=== PATIENT | female | born 1970 | race Caucasian/White ===

== ENCOUNTER 2016-09-28 12:52 | Emergency (ER) | payer MEDICAID, OTHER ==
[~2016-09-28] VITALS: Ht 160 cm; Wt 64.0 kg
[~2016-09-28 12:52] MED LIST: HYDROXYCHLOROQUINE; METHYLPREDNISOLONE; PAROXETINE; VICODIN ES
[2016-09-28] MEDS ORDERED: KETOROLAC 60MG/2ML VIAL IM ONE (15:30)
[2016-09-28 15:40] VITALS: BP 111/65
[2016-09-28 16:05] LABS: CLARITY URINE CLEAR (CLEAR); COLOR URINE YELLOW (YELLOW); GLUCOSE URINE NEGATIVE (NEGATIVE); KETONES URINE TRACE (NEGATIVE); LEUKOCYTE ESTERASE URINE TRACE (NEGATIVE); NITRITE URINE NEGATIVE (NEGATIVE); OCCULT BLOOD URINE 1+ (NEGATIVE); PH URINE 5.5 (4.5-8.0); PROTEIN URINE NEGATIVE (NEGATIVE); SPECIFIC GRAVITY URINE 1.031 (1.005-1.030); UROBILINOGEN URINE 0.2 E.U./dL (0.2-1.0)
== END 2016-09-28 15:00 | disposition left against medical advice (07) ==
LOC: ER 14:34
DX: M54.31 Sciatica, right side (principal); M32.9 Systemic lupus erythematosus, unspecified; E78.00 Pure hypercholesterolemia, unspecified; G43.909 Migraine, unspecified, not intractable, without status migrainosus; F17.200 Nicotine dependence, unspecified, uncomplicated
CPT/HCPCS: 81001; 81025; 99283; J1885

== ENCOUNTER 2017-05-30 09:39 | Emergency (ER) | payer MEDICAID, OTHER ==
[~2017-05-30] VITALS: Ht 154.9 cm; Wt 50.0 kg
[2017-05-30] MEDS ORDERED: KETOROLAC 30MG/ML VIAL IV STA (12:39)
[2017-05-30] MEDS ORDERED: SODIUM CHLORIDE 0.9% 1,000 ML IV ONE (12:39)
[2017-05-30] MEDS ORDERED: DIPHENHYDRAMINE 50MG/ML VIAL IV ONE (12:45)
[2017-05-30] MEDS ORDERED: METOCLOPRAMIDE HCL 5MG TABLET PO ONE (12:45)
[2017-05-30 16:18] VITALS: BP 114/66
== END 2017-05-30 17:37 | disposition home or self-care (01) ==
LOC: ER 09:48
DX: G43.909 Migraine, unspecified, not intractable, without status migrainosus (principal); R42 Dizziness and giddiness; E78.00 Pure hypercholesterolemia, unspecified; M32.9 Systemic lupus erythematosus, unspecified
CPT/HCPCS: 81025; 96361; 96374; 96375; 99284; J1200; J1885; J7030; X7700; J8597